=== PATIENT | female | born 1980 | race American Indian/Alaskan Native ===

== ENCOUNTER 2018-12-27 07:27 | Emergency (ER) | payer MEDICAID, OTHER, SELFPAY ==
--- NOTE | 2018-12-27 07:34 | ED.OVERDOSE ---
HPI - Overdose General Chief Complaint: Toxicology Problem Stated Complaint: overdose Time Seen by Provider: 12/27/18 07:30 Source: patient, family and EMS Mode of arrival: EMS Limitations: no limitations History of Present Illness HPI Narrative: 37-year-old female smoker with history of IV drug abuse presents by EMS for evaluation of overdose this morning injected heroin and methamphetamines. Patient was recently incarcerated for 120 days and had therefore been clean but relapsed and was actually attempting to get rehab today. Patient was found by 1st responders whom administered 2 doses of 2 mg intranasal Narcan and the patient was awake, alert and oriented in no respiratory distress on EMS arrival. She denies any history of overdose. She states she took no pills she is regretful and crying complaint: accidental overdose Onset (ago): minute(s) How Overdose Was Discovered: called family/friend Context: Accidental Overdose: wanted to get high Treatments Prior to Arrival: oxygen and narcan Related Data Home Medications Medication Instructions Recorded Confirmed hydroxyzine pamoate [Vistaril] 50 mg PO TID-QID 12/27/18 12/27/18 ibuprofen 600 mg PO TID 12/27/18 12/27/18 Allergies Allergy/AdvReac Type Severity Reaction Status Date / Time No Known Drug Allergies Allergy Verified 12/27/18 08:21 Review of Systems Constitutional Denies chills, Denies fever(s), Denies lethargy and Denies weakness Eyes Denies change in vision, Denies eye discharge, Denies irritation and Denies loss of vision ENT Ears, Nose, Mouth, and Throat: Denies change in voice, Denies neck pain and Denies sore throat Cardiovascular Denies chest pain, Denies irregular heart rhythm, Denies lightheadedness, Denies palpitations, Denies dyspnea, Denies dyspnea on exertion and Denies orthopnea Respiratory Denies cough, Denies dyspnea, Denies dyspnea on exertion and Denies wheezing Gastrointestinal Gastrointestinal: Denies abdominal pain, Denies change in bowel habits, Denies diarrhea, Denies nausea and Denies vomiting Genitourinary Denies hematuria, Denies flank pain, Denies urinary incontinence and Denies urinary urgency Musculoskeletal Denies neck pain Integumentary/Breasts Denies pruritus, Denies erythema, Denies rash and Denies wounds Neurologic Denies confusion, Denies loss of vision and Denies weakness Psychiatric Denies anxiety, Denies confusion, Denies depression, Denies homicidal ideation and Denies suicidal ideation Endocrine Denies palpitations Hematologic/Lymphatic Denies easy bruising Allergic/Immunologic Denies wheezing [facility] Social History (Updated 12/27/18 @ 07:43 by Les Smith DO) Smoking Status: Current every day smoker substance use type: heroin and methamphetamine Exam Narrative Exam Narrative: GENERAL: 37F, crying, guarding airway, AOx3 HEAD: Atraumatic. Normocephalic. No temporal or scalp tenderness. EYES: Pupils equal round and reactive. Extraocular motions intact. No scleral icterus. No injection or drainage. ENT: Nose without bleeding, purulent drainage or septal hematoma. Throat without erythema, tonsillar hypertrophy or exudate. Uvula midline. Airway patent. NECK: Trachea midline. No JVD or lymphadenopathy. Supple, nontender, no meningeal signs. CARDIOVASCULAR: Regular rate and rhythm without murmurs, gallops, or rubs. RESPIRATORY: Clear to auscultation. Breath sounds equal bilaterally. No wheezes, rales, or rhonchi. GASTROINTESTINAL: Abdomen soft, non-tender, nondistended. No hepato-splenomegaly, or palpable masses. No guarding. EXTREMITIES: No clubbing, cyanosis, or edema. No joint tenderness, effusion, or edema noted. BACK: Nontender without deformity or crepitance. No flank tenderness. NEURO: AOx3. SKIN: No rash or erythema. Initial Vital Signs Initial Vital Signs: Vital Signs Temperature 97.8 F 12/27/18 07:43 Pulse Rate 82 12/27/18 07:43 Respiratory Rate 16 12/27/18 07:43 Blood Pressure 157/94 H 12/27/18 07:43 Pulse Oximetry 99 12/27/18 07:43 Course Orders Ordered: ED Orders 12/27/18 07:40 EKG-12 Lead Stat 12/27/18 07:50 Acetaminophen Stat Basic Metabolic Panel Stat Complete Blood Count AUTO DIFF Stat Ethanol (ETOH) Stat Salicylate Stat Discontinued Medications Ondansetron HCl (Zofran) 4 mg IV NOW ONE Stop: 12/27/18 09:04 Last Admin: 12/27/18 08:47 Dose: 4 mg Reevaluation(s) Reevaluation #1: patient speaking clearly, without slurring, and is walking with steady gait Vital Signs - 8 hr 12/27/18 07:43 12/27/18 08:35 12/27/18 09:15 Temperature 97.8 F Pulse Rate 82 77 77 Respiratory Rate 16 16 16 Blood Pressure 157/94 H 139/76 Blood Pressure [Left Arm] 128/79 Pulse Oximetry 99 99 98 MDM - Overdose Lab Data Result diagrams: 12/27/18 07:50 12/27/18 07:50 Lab Results 12/27/18 12/27/18 Range/Units 07:50 07:50 WBC 10.4 (4.5-11.0) X10^3/uL RBC 5.09 (4.0-5.2) X10^6/uL Hgb 11.2 L (12.0-16.0) g/dL Hct 35.3 L (36-46) % MCV 69.3 L (80-100) fL MCH 22.0 L (26-34) PG MCHC 31.7 (30-36) % RDW 19.2 H (11.6-14.8) % Plt Count 420 H (150-400) X10^3/uL Neut % (Auto) 78.0 H (50-75) % Lymph % (Auto) 16.2 L (25-40) % [place] % (Auto) 5.1 (3-14) % Eos % (Auto) 0.4 L (2-4) % Baso % (Auto) 0.3 (0-2) % Neut # (Auto) 8100 H (2144-5718) /uL Lymph # (Auto) 1700 (6702-8397) /uL [place] # (Auto) 500 (0-900) /uL Eos # (Auto) 0 (0-450) /uL Baso # (Auto) 0 (0-100) /uL RBC Morphology See below Hypochromasia 2+ H Anisocytosis 2+ H Microcytosis 2+ H Sodium 140 (137-145) mmol/L Potassium 4.2 (3.4-5.1) mmol/L Chloride 105 (98-107) mmol/L Carbon Dioxide 26 (22-32) mmol/L BUN 12 (7-17) mg/dL Creatinine 0.70 (0.52-1.04) mg/dL Estimated GFR > 60.0 (>60) mL/min BUN/Creatinine Ratio 17.1 (6-22) Glucose 105 H (70-100) mg/dL Calcium 9.0 (8.4-10.2) mg/dL Salicylates < 1.0 (<20) mg/dL Acetaminophen < 10 L (10-30) ug/mL Ethyl Alcohol < 10 mg/dL MDM Narrative Medical decision making narrative: 37-year-old female with an intentional polysubstance overdose with complete reversal by Narcan. Patient requesting help, intends to speak with local detox. Patient given list of probably funded treatment services in [facility] from the [facility] web site. Opioid overdose form completed and faxed to [facility] Discharge Plan Departure Patient Disposition: Home Clinical Impression: Opioid overdose Qualifiers: Encounter type: initial encounter Injury intent: accidental or unintentional Qualified Code(s): T40.2X1A - Poisoning by other opioids, accidental (unintentional), initial encounter Discharge Date/Time: 12/27/18 09:15 Interventions: ED Discharge Assessment Last Done: 12/27/18 09:15 Instructions: DI for Drug Overdose in Adults Activity Restrictions/Additional Instructions: *You have been diagnosed with [accidental polysubstance overdose] *What to do: *Take medications as directed *Follow up with your primary care provider in 2-3 days, call for an appointment. Let them know you were seen in the Emergency Department and that we ask that you be seen in follow up *Return to ER if you should have any new, worsening or concerning symptoms Prescriptions: No Action hydroxyzine pamoate [Vistaril] 50 mg Capsule 50 mg PO TID-QID RF: 0 ibuprofen 600 mg Tablet 600 mg PO TID RF: 0 Referrals: [facility] [Outside]
[2018-12-27 07:43] VITALS: BP 157/94; PULSE 82; RESP 16; TEMP 36.6; O2SAT 99
--- NOTE | 2018-12-27 07:45 | ED_ITS ---
HPI - Overdose General Chief Complaint: Toxicology Problem Stated Complaint: overdose Time Seen by Provider: 12/27/18 07:30 Source: patient, family and EMS Mode of arrival: EMS Limitations: no limitations History of Present Illness HPI Narrative: 37-year-old female smoker with history of IV drug abuse presents by EMS for evaluation of overdose this morning injected heroin and methamphetamines. Patient was recently incarcerated for 120 days and had therefore been clean but relapsed and was actually attempting to get rehab today. Patient was found by 1st responders whom administered 2 doses of 2 mg intranasal Narcan and the patient was awake, alert and oriented in no respiratory distress on EMS arrival. She denies any history of overdose. She states she took no pills she is regretful and crying complaint: accidental overdose Onset (ago): minute(s) How Overdose Was Discovered: called family/friend Context: Accidental Overdose: wanted to get high Treatments Prior to Arrival: oxygen and narcan Related Data Home Medications Medication Instructions Recorded Confirmed hydroxyzine pamoate [Vistaril] 50 mg PO TID-QID 12/27/18 12/27/18 ibuprofen 600 mg PO TID 12/27/18 12/27/18 Allergies Allergy/AdvReac Type Severity Reaction Status Date / Time No Known Drug Allergies Allergy Verified 12/27/18 08:21 Review of Systems Constitutional Denies chills, Denies fever(s), Denies lethargy and Denies weakness Eyes Denies change in vision, Denies eye discharge, Denies irritation and Denies loss of vision ENT Ears, Nose, Mouth, and Throat: Denies change in voice, Denies neck pain and Denies sore throat Cardiovascular Denies chest pain, Denies irregular heart rhythm, Denies lightheadedness, Denies palpitations, Denies dyspnea, Denies dyspnea on exertion and Denies orthopnea Respiratory Denies cough, Denies dyspnea, Denies dyspnea on exertion and Denies wheezing Gastrointestinal Gastrointestinal: Denies abdominal pain, Denies change in bowel habits, Denies diarrhea, Denies nausea and Denies vomiting Genitourinary Denies hematuria, Denies flank pain, Denies urinary incontinence and Denies urinary urgency Musculoskeletal Denies neck pain Integumentary/Breasts Denies pruritus, Denies erythema, Denies rash and Denies wounds Neurologic Denies confusion, Denies loss of vision and Denies weakness Psychiatric Denies anxiety, Denies confusion, Denies depression, Denies homicidal ideation a nd Denies suicidal ideation Endocrine Denies palpitations Hematologic/Lymphatic Denies easy bruising Allergic/Immunologic Denies wheezing [facility] Social History (Updated 12/27/18 @ 07:43 by Les Smith DO) Smoking Status: Current every day smoker substance use type: heroin and methamphetamine Exam Narrative Exam Narrative: GENERAL: 37F, crying, guarding airway, AOx3 HEAD: Atraumatic. Normocephalic. No temporal or scalp tenderness. EYES: Pupils equal round and reactive. Extraocular motions intact. No scleral icterus. No injection or drainage. ENT: Nose without bleeding, purulent drainage or septal hematoma. Throat without erythema, tonsillar hypertrophy or exudate. Uvula midline. Airway patent. NECK: Trachea midline. No JVD or lymphadenopathy. Supple, nontender, no meningeal signs. CARDIOVASCULAR: Regular rate and rhythm without murmurs, gallops, or rubs. RESPIRATORY: Clear to auscultation. Breath sounds equal bilaterally. No wheezes, rales, or rhonchi. GASTROINTESTINAL: Abdomen soft, non-tender, nondistended. No hepato- splenomegaly, or palpable masses. No guarding. EXTREMITIES: No clubbing, cyanosis, or edema. No joint tenderness, effusion, or edema noted. BACK: Nontender without deformity or crepitance. No flank tenderness. NEURO: AOx3. SKIN: No rash or erythema. Initial Vital Signs Initial Vital Signs: Vital Signs Temperature 97.8 F 12/27/18 07:43 Pulse Rate 82 12/27/18 07:43 Respiratory Rate 16 12/27/18 07:43 Blood Pressure 157/94 H 12/27/18 07:43 Pulse Oximetry 99 12/27/18 07:43 Course Orders Ordered: ED Orders 12/27/18 07:40 EKG-12 Lead Stat 12/27/18 07:50 Acetaminophen Stat Basic Metabolic Panel Stat Complete Blood Count AUTO DIFF Stat Ethanol (ETOH) Stat Salicylate Stat Discontinued Medications Ondansetron HCl (Zofran) 4 mg IV NOW ONE Stop: 12/27/18 09:04 Last Admin: 12/27/18 08:47 Dose: 4 mg Reevaluation(s) Reevaluation #1: patient speaking clearly, without slurring, and is walking with steady gait Vital Signs - 8 hr 12/27/18 07:43 06/07/19 08:35 12/27/18 09:15 Temperature 97.8 F Pulse Rate 82 77 77 Respiratory Rate 16 16 16 Blood Pressure 157/94 H 139/76 Blood Pressure [Left Arm] 128/79 Pulse Oximetry 99 99 98 MDM - Overdose Lab Data Result diagrams: 12/27/18 07:50 12/27/18 07:50 Lab Results 12/27/18 12/27/18 Range/Units 07:50 07:50 WBC 10.4 (4.5-11.0) X10^3/uL RBC 5.09 (4.0-5.2) X10^6/uL Hgb 11.2 L (12.0-16.0) g/dL Hct 35.3 L (36-46) % MCV 69.3 L (80-100) fL MCH 22.0 L (26-34) PG MCHC 31.7 (30-36) % RDW 19.2 H (11.6-14.8) % Plt Count 420 H (150-400) X10^3/uL Neut % (Auto) 78.0 H (50-75) % Lymph % (Auto) 16.2 L (25-40) % [place] % (Auto) 5.1 (3-14) % Eos % (Auto) 0.4 L (2-4) % Baso % (Auto) 0.3 (0-2) % Neut # (Auto) 8100 H (9411-5982) /uL Lymph # (Auto) 1700 (7866-9937) /uL [place] # (Auto) 500 (0-900) /uL Eos # (Auto) 0 (0-450) /uL Baso # (Auto) 0 (0-100) /uL RBC Morphology See below Hypochromasia 2+ H Anisocytosis 2+ H Microcytosis 2+ H Sodium 140 (137-145) mmol/L Potassium 4.2 (3.4-5.1) mmol/L Chloride 105 (98-107) mmol/L Carbon Dioxide 26 (22-32) mmol/L BUN 12 (7-17) mg/dL Creatinine 0.70 (0.52-1.04) mg/dL Estimated GFR > 60.0 (>60) mL/min BUN/Creatinine Ratio 17.1 (6-22) Glucose 105 H (70-100) mg/dL Calcium 9.0 (8.4-10.2) mg/dL Salicylates < 1.0 (<20) mg/dL Acetaminophen < 10 L (10-30) ug/mL Ethyl Alcohol < 10 mg/dL MDM Narrative Medical decision making narrative: 37-year-old female with an intentional polysubstance overdose with complete reversal by Narcan. Patient requesting help, intends to speak with local detox. Patient given list of probably funded treatment services in [facility] from the [facility] web site. Opioid overdose form completed and faxed to [facility] Discharge Plan Departure Patient Disposition: Home Clinical Impression: Opioid overdose Qualifiers: Encounter type: initial encounter Injury intent: accidental or unintentional Qualified Code(s): T40.2X1A - Poisoning by other opioids, accidental (unintentional), initial encounter Discharge Date/Time: 12/27/18 09:15 Interventions: ED Discharge Assessment Last Done: 12/27/18 09:15 Instructions: DI for Drug Overdose in Adults Activity Restrictions/Additional Instructions: *You have been diagnosed with [accidental polysubstance overdose] *What to do: *Take medications as directed *Follow up with your primary care provider in 2-3 days, call for an appointment. Let them know you were seen in the Emergency Department and that we ask that you be seen in follow up *Return to ER if you should have any new, worsening or concerning symptoms Prescriptions: No Action hydroxyzine pamoate [Vistaril] 50 mg Capsule 50 mg PO TID-QID RF: 0 ibuprofen 600 mg Tablet 600 mg PO TID RF: 0 Referrals: [facility] [Outside]
[2018-12-27 08:01] LABS: Add Manual Diff / Slide Review NO; Basophils Absolute Auto 0 /uL (0-100); Basophils Percent Auto 0.3 % (0-2); Eosinophils Absolute Auto 0 /uL (0-450); Eosinophils Percent Auto 0.4 % (2-4); Hematocrit 35.3 % (36-46); Hemoglobin 11.2 g/dL (12.0-16.0); Lymphocytes Absolute Auto 1700 /uL (1100-4500); Lymphocytes Percent Auto 16.2 % (25-40); Mean Corpuscular HGB Conc 31.7 % (30-36); Mean Corpuscular Volume 69.3 fL (80-100); Monocytes Absolute Auto 500 /uL (0-900); Monocytes Percent Auto 5.1 % (3-14); Neutrophils Absolute Auto 8100 /uL (1500-7000); Platelet Count 420 X10^3/uL (150-400); Red Blood Cell Count 5.09 X10^6/uL (4.0-5.2); Red Cell Distribution Width 19.2 % (11.6-14.8); White Blood Cell Count 10.4 X10^3/uL (4.5-11.0)
[2018-12-27 08:12] LABS: Acetaminophen < 10 ug/mL (10-30); BUN Creatinine Ratio 17.1 (6-22); Blood Urea Nitrogen 12 mg/dL (7-17); Carbon Dioxide 26 mmol/L (22-32); Chloride 105 mmol/L (98-107); Estimated Glomerular Filt Rate > 60.0 mL/min (>60); Ethanol (ETOH) < 10 mg/dL; Glucose 105 mg/dL (70-100); HEMOLYSIS < 15 (0-50); Potassium 4.2 mmol/L (3.4-5.1); Salicylate < 1.0 mg/dL (<20); Sodium 140 mmol/L (137-145)
[2018-12-27 08:35] VITALS: BP 128/79; PULSE 77; RESP 16; O2SAT 99
[2018-12-27 08:40] LABS: Anisocytosis 2+; Hypochromasia 2+; Microcytosis 2+
[2018-12-27] MEDS: ONDANSETRON 4 MG/2 ML INJ IV (08:47)
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
--- NOTE | 2018-12-27 09:13 | PC.NURSE ---
0753 At this time other family members, 3 in total arrived and entered the room. They immediately began yelling when they saw the girlfriend at bedside and telling her to get out! you're not family! Family and girlfriend and patient are all yelling back and fort at this time. In order to ensure patient safely in intervened at this time and told all visitors they would need to exit the room and head out to the lobby. They did not repsond immediately so I again calmy stated they would need to leave the room or I would be forced to call security. They continued yelling but wihtin a minute had all exited the room. Patient thanked me. I exited the room and found a family member still lingering leaning against nurses station, I calmly explained to her that I could not have her waiting here due to patient confidentiality. I had to say it multiple times before she verbalized understanding and angrily exited to the lobby. Patient again thanked me and stated I need some peace and quiet.
[2018-12-27 09:15] VITALS: BP 139/76; PULSE 77; RESP 16; O2SAT 98
--- NOTE | 2018-12-27 09:33 | PC.NURSE ---
Family calling multiple times over the red phone in the last 45 minutes requesting to come back. I, other staff members, and Dr. Smith informed them that at this time we would not be allowing any visitors back per the patient's request. They are upset. At one point they used profanity while speaking with Dr. Smith.
--- NOTE | 2018-12-27 09:48 | PC.NURSE ---
0835 Patient in bathroom attempting to provide urine specimen. She is heard vomiting/dry-heaving in bathroom. Verbal order given by Dr. Smith for 4mg IV zofran.
--- NOTE | 2018-12-27 09:51 | PC.NURSE ---
0815 Patient still unable to reach girlfriend or family members at this time. She states her girlfriend lives across the street and will just walk there. DC'd at this time, ambulatory and alert.
== END 2018-12-27 09:15 | disposition home or self-care (01) ==
PROVIDERS: Emergency Provider Emergency Medicine
DX: T40.2X1A Poisoning by other opioids, accidental (unintentional), initial encounter (principal)
CPT/HCPCS: 36415; 36591; 80048; 80320; 80329; 85025; 93005; 96374; 99282; 99284; G0480; J2405